=== PATIENT | male | born 1990 | race Caucasian/White ===

== ENCOUNTER 2018-04-06 11:12 | Outpatient (CLI) | payer BC, SELFPAY ==
--- NOTE | 2018-04-06 11:25 | DI.REPORT_ITS ---
SYMPTOMS/DIAGNOSIS: F/U ORIF LEFT TIB/FIB: Three views. Comparison 03/20/18. There is an intramedullary wyatt transfixing the fracture of the distal left tibia. The orthopedic hardware appears intact. The alignment of the fracture appears near anatomic. There does appear to be some callous formation about the fracture suggesting interval healing. There is again seen a comminuted fracture involving the distal left fibula. There is displacement of the distal fracture one-shafts width medially.
== END 2018-04-06 11:13 ==
PROVIDERS: PCP Registered Nurse; Visit Provider Orthopaedic Surgery
DX: S82.202E Unspecified fracture of shaft of left tibia, subsequent encounter for open fracture type I or II with routine healing (principal); S82.402E Unspecified fracture of shaft of left fibula, subsequent encounter for open fracture type I or II with routine healing
CPT/HCPCS: 73590

== ENCOUNTER 2018-05-04 11:30 | Outpatient (CLI) | payer BC, SELFPAY ==
--- NOTE | 2018-05-04 09:54 | DI.RAD_ITS ---
SYMPTOMS/DIAGNOSIS: F/U FX LEFT TIB/FIB: Comparison 04/06/18. Four views were obtained. There is again seen an intramedullary wyatt transfixing the fracture of the distal left tibia. No evidence of hardware failure is seen. The fracture components are stable in alignment. There is developed mild callous formation about the fracture consistent with some interval healing. There has been no change in alignment of the comminuted fracture involving the distal left fibula. No new fractures or dislocations are seen.
== END 2018-05-04 11:50 ==
PROVIDERS: PCP Registered Nurse; Visit Provider Orthopaedic Surgery
DX: S82.232 Displaced oblique fracture of shaft of left tibia (principal)
CPT/HCPCS: 73590

== ENCOUNTER 2018-06-15 09:38 | Outpatient (CLI) | payer BC, SELFPAY ==
--- NOTE | 2018-06-15 09:22 | DI.RAD_ITS ---
SYMPTOM/DIAGNOSIS: F/U ORIF LEFT LEG: Four views. Comparison is made with 05/04/18. There is again seen an intramedullary wyatt and screws transfixing the fracture of the distal right tibia. There has been no change in alignment of the fracture or orthopedic hardware compared to the prior examination. There has been interval callous formation about the fracture consistent with interval healing. There has been no change in alignment of the comminuted, mildly displaced fracture involving the left fibula. Increased callous formation is seen about the fracture consistent with some interval healing. No new fractures or dislocations are seen. The soft tissues are unremarkable. IMPRESSION: Healing distal left tibia and fibular fractures.
== END 2018-06-15 09:58 ==
PROVIDERS: PCP Registered Nurse; Visit Provider Physician Assistant Surgical
DX: S82.232D Displaced oblique fracture of shaft of left tibia, subsequent encounter for closed fracture with routine healing (principal); S82.432D Displaced oblique fracture of shaft of left fibula, subsequent encounter for closed fracture with routine healing
CPT/HCPCS: 73590

== ENCOUNTER 2018-08-11 09:22 | Outpatient (CLI) | payer BC, SELFPAY ==
--- NOTE | 2018-08-11 09:13 | DI.RAD_ITS ---
SYMPTOMS/DIAGNOSIS: ORIF LEFT TIBIA AND FIBULA: Comparison is made with [id number]. An intramedullary wyatt is again noted in the tibia. There has been continued callous formation around the distal tibial and fibular fractures.
== END 2018-08-11 09:42 ==
PROVIDERS: PCP Registered Nurse; Visit Provider Physician Assistant Surgical
DX: S82.232D Displaced oblique fracture of shaft of left tibia, subsequent encounter for closed fracture with routine healing (principal); S82.432D Displaced oblique fracture of shaft of left fibula, subsequent encounter for closed fracture with routine healing
CPT/HCPCS: 73590

== ENCOUNTER 2020-05-02 13:41 | Outpatient (CLI) | payer BC, SELFPAY ==
--- NOTE | 2020-05-02 13:30 | DI.RAD_ITS ---
EXAM: XR TIB/FIB LT and XR knee LT three-view CLINICAL HISTORY: fu fracture. TECHNIQUE: 2D digital imaging was performed COMPARISON: CR XR tib/fib LT from 08/11/2018 CR XR KNEE LT 3V AP,LAT,MARLO from 05/02/2020 FINDINGS: BONES: The distal left tibial and fibular fractures appear healed. There is again seen an intramedul phyllis wyatt traversing the left tibial fracture. No new fracture or dislocation is seen. Visualized po rtion of knee and ankle joints are unremarkable. SOFT TISSUE: Normal. IMPRESSION: Healed left tibial and fibular fractures. DATA REPOSITORY: RADIATION DOSE DELIVERED:
== END 2020-05-02 14:01 ==
PROVIDERS: PCP Registered Nurse; Referring Provider Registered Nurse; Visit Provider Student in an Organized Health Care Education/Training Program
DX: S82.392D Other fracture of lower end of left tibia, subsequent encounter for closed fracture with routine healing (principal); S82.492D Other fracture of shaft of left fibula, subsequent encounter for closed fracture with routine healing; M25.562 Pain in left knee
CPT/HCPCS: 73562; 73590

== ENCOUNTER 2020-05-15 07:26 | Outpatient (CLI) | payer BC, SELFPAY ==
[2020-05-16 23:43] LABS: COVID-19 RT-PCR Result NEGATIVE (Negative)
== END 2020-05-15 07:46 ==
PROVIDERS: PCP Registered Nurse; Visit Provider Student in an Organized Health Care Education/Training Program
DX: Z11.59 Encounter for screening for other viral diseases (principal); Z01.818 Encounter for other preprocedural examination
CPT/HCPCS: U0003

== ENCOUNTER 2020-05-18 06:10 | Day surgery (SDC) | payer BC, SELFPAY ==
[2020-05-18] VITALS (8 sets, daily range): BP systolic 94–120; BP diastolic 55–75; PULSE 40–52; RESP 12–20; TEMP 36.2–36.7; O2SAT 97–100
[2020-05-18] MEDS: Lactated Ringers 1,000 ML 100 ML IV (06:56)
[2020-05-18] MEDS: ceFAZolin 2 GM/50 ML BAG IVPB (07:23)
--- NOTE | 2020-05-18 08:11 | DI.RAD_ITS ---
EXAM: XR TIB/FIB LT CLINICAL HISTORY: PAINFUL HARDWARE LEFT TIBIA TECHNIQUE: 2D and realtime digital imaging was performed. COMPARISON: No exams were available for comparison FINDINGS: C-arm fluoroscopy was utilized by Dr. Garcia during reported hardware removal. Hard copy show removal of fixation screws from the tibia with intramedullary wyatt remaining in place. Fluoro time 13.8 seconds. IMPRESSION: RADIATION DOSE DELIVERED: Total DLP
--- NOTE | 2020-05-18 08:33 | PDOC.DSDIS_ITS ---
Discharge Plan Disposition Patient Disposition: HOME Condition: Stable Discharge Details Reason For Visit: Left leg symptomatic hardware Attending Provider: Jeovanny Garcia Primary Care Provider: Michelle Gerber Home Meds and New Rx's Prescriptions: New naproxen 250 mg tablet 250 - 500 mg PO BID PRN (Reason: Moderate pain or swelling) Qty: 30 RF: 0 aspirin 81 mg tablet,delayed release (DR/EC) 81 mg PO DAILY 14 Days Qty: 14 RF: 0 tramadol 50 mg Tablet 50 mg PO Q8H PRN PRN (Reason: severe pain) Qty: 5 RF: 0 Continued albuterol sulfate 90 mcg/actuation HFA aerosol inhaler 1 puff INHALATION PRN PRNRF: 0 Discontinued ibuprofen 800 MG tablet 800 mg PO TID PRNRF: 0 Discharge Instructions Additional Instructions: Surgery: Left tibia removal of hardware (3 screws) Activity: Advance to weightbearing as tolerated. Avoid high impact activities for 2 weeks. Recommend elevation to minimize swelling and discomfort. Prescriptions: Aspirin 81 mg take 1 daily to prevent a blood clot for 2 weeks Naproxen 250 mg take 1-2 every 12 hours with a meal as needed for moderate pain Tramadol 50 mg take 1 every 8 hours as needed for severe pain You may use [id number] Tylenol (acetaminophen) as needed for mild pain. These pain medications may be taken all at once or in different combinations as needed. Also, recommend Colace (docusate) as a stool softener as surgery and pain medicine cause constipation. Dressings: Leave dressing in place for 2-3 days. May then remove and leave open to air or cover incisions with Band-Aids. May shower after 5 days. Follow-up: 10-[address] Garcia (05/30/20 at 2:30pm) Let us know right away if you develop any redness, drainage, fevers, chest pain, or trouble breathing. Do not drink alcohol or drive for at least 24 hours after anesthesia. Please call the office during business hours with any questions or concerns. Referrals: Jeovanny Garcia MD [ [facility] STAFF PHYSICIAN] - Discharge Orders Discharge Orders: Discharge Order (Routine); Ordered 05/18/20 Ordered By: Jeovanny Garcia DS: Diagnosis Discharge Diagnosis (1) Open fracture of tibia and fibula: Status: Resolved (2) Painful orthopaedic hardware: Status: Acute (3) Knee pain, left: Status: Acute
--- NOTE | 2020-05-18 08:45 | ROE_ITS ---
Date of service: 05/18/20 Time of Service: 08:34 Operative Note Operative Note DATE OF PROCEDURE: 05/18/20 PRE-OP DIAGNOSIS: Left tibia symptomatic/painful hardware POST-OP DIAGNOSIS: same PROCEDURE: Left tibia removal of deep implant/hardware: 3 screws SURGEON: Jeovanny Garcia GEOPHYSICAL LABORATORY DIRECTOR: Freida Pyle ANESTHESIA: GETA and local ESTIMATED BLOOD LOSS: 1 PATHOLOGY: none sent TOURNIQUET TIME: 0 COMPLICATIONS: None Patient was transported to: PACU Patient's condition: stable Indications: Please see complete medical record for details. Procedure Description: In the operating room, general anesthesia was induced. The patient was positioned supine on the operating room table. All bony prominences were well-padded. Preoperative antibiotics were administered. The left lower extremity was prepped and draped in the usual sterile fashion. The correct patient, procedure, and side of the procedure were all verified prior to incision. 20 cc of 0.25% bupivacaine with epinephrine was infiltrated about the prominent and palpable screw heads. C arm fluoroscopy was used to localize and confirm correct trajectory for each screw removal. The prior incisions were used. A combination of sharp and blunt dissection was used to localize the screw heads and clear soft tissue. The appropriate screwdriver was carefully inserted into the screw head and then each screw was removed in entirety without complication starting with the distal medial locking screw, then the anterior proximal locking screw, and then the anterior lateral to posterior medial distal locking screw. Each incision site was copious irrigated. Hemostasis was appropriate. No purulence or signs of infection were encountered. The incision was closed using 3-0 Monocryl in a buried interrupted fashion. Mastisol was applied about each incision and the skin was covered with Steri-Strips, Xeroform, dry 4 x 4 gauze and the left lower extremity was wrapped in Bebeto bandage. The patient awoke from anesthesia without complication and was transferred to the recovery room in a stable condition.
== END 2020-05-18 10:39 | disposition home or self-care (01) ==
PROVIDERS: PCP Registered Nurse; Visit Provider Student in an Organized Health Care Education/Training Program
PROC: (CPT 20680; principal; 2020-05-18 07:30)
DX: T84.84XA Pain due to internal orthopedic prosthetic devices, implants and grafts, initial encounter (principal); K58.9 Irritable bowel syndrome, unspecified
CPT/HCPCS: 20680; 73590; J0690; J1100; J1885; J2250; J2405; J2704

== ENCOUNTER 2023-05-12 14:58 | Outpatient (REF) | payer BC, SELFPAY ==
[2023-05-14 11:21] LABS: Appearance Normal; Container Type 50 mL Conical; Double Forms 1.5 %; Germ Cells/mL 0.41 x10(6) (<4.00); Grade 2.5 (>=2.5); Head Shape Abnormal 9.5 %; Motile/Ejaculate 14.4 x10(6) (>=9.0); Motile/mL 3.6 x10(6) (>=6.0); Motility 22 % (>=40); Sperm/mL 16.5 x10(6) (>=15.0); Study Type Semen; Supravital Stain 49 % live (>=58); WBC/mL 0.41 x10(6) (<1.00); pH 7.5 (>=7.2)
== END 2023-05-12 14:59 | disposition home or self-care (01) ==
LOC: LBN 14:58
PROVIDERS: PCP Registered Nurse; Visit Provider Registered Nurse
DX: Z31.89 Encounter for other procreative management (principal)
CPT/HCPCS: 89240; 89310

== ENCOUNTER 2024-10-03 16:49 | Outpatient (REF) | payer BC, SELFPAY ==
[2024-10-05 16:37] LABS: Acrosom Defect 12.5 %; Appearance Normal; Container Type 50 mL Conical; Double Forms 1.5 %; Motile/Ejaculate 24.6 x10(6) (>=9.0); Motile/mL 4.1 x10(6) (>=6.0); Motility 28 % (>=40); Sperm/mL 14.6 x10(6) (>=15.0); Strict Morph NL 5.5 % (>=4.0); Study Type Semen; Supravital Stain 55 % live (>=58); Tail Defect 41.5 %; WBC/mL 0.29 x10(6) (<1.00); pH 7.5 (>=7.2)
== END 2024-10-03 16:50 | disposition home or self-care (01) ==
LOC: LBN 16:49
PROVIDERS: PCP Registered Nurse; Visit Provider Physician Assistant
DX: Z31.69 Encounter for other general counseling and advice on procreation (principal)
CPT/HCPCS: 89240; 89310